=== PATIENT | female | born 1990 | race Caucasian/White ===

== ENCOUNTER 2019-10-27 16:02 | Emergency (ER) | payer SELFPAY ==
--- NOTE | 2019-10-27 17:57 | RAD REPORT ---
EXAM DESCRIPTION: RAD - Forearm Right - 10/27/2019 5:49 pm CLINICAL HISTORY: Right arm pain status post fall FINDINGS: Comminuted moderately displaced fracture involves the distal radius with impaction of frac ture fragments. Avulsion fracture of the ulnar styloid.
[2019-10-27] MEDS ORDERED: HYDROCODONE/APAP 5/325 MG TAB ONE (18:00)
--- NOTE | 2019-10-27 18:03 | ER ---
Nurse's Notes [facility] Name: Leisa Nunez Age: 28 yrs Sex: Female : 1990 Arrival Date: 10/27/2019 Time: 16:03 Bed 14 Private MD: Diagnosis: Fall with nondisplaced mildly comminuted distal radius fracture with ulnar styloid fracture Presentation: 10/27 16:18 Presenting complaint: Patient states: R wrist pain x 1 week after falling down steps. ss Transition of care: patient was not received from another setting of care. Onset of symptoms was October 20, 2019. Risk Assessment: Do you want to hurt yourself or someone else? Patient reports no desire to harm self or others. Initial Sepsis Screen: Does the patient meet any 2 criteria? No. Patient's initial sepsis screen is negative. Does the patient have a suspected source of infection? No. Patient's initial sepsis screen is negative. Care prior to arrival: None. 16:18 Method Of Arrival: Ambulatory ss 16:18 Acuity: FRANCISCO 4 ss Triage Assessment: 18:30 General: Appears in no apparent distress. comfortable. Injury Description: fracture. 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 - Coronavirus screen:: The patient has NOT traveled to [place], [place], or [place] in the past 14 days. Proceed with normal triage process as indicated. - Social history:: Smoking status: Patient reports the use of cigarette tobacco products, smokes one pack cigarettes per day. - Ebola Screening: : Patient denies exposure to infectious person Patient denies travel to an Ebola-affected area in the 21 days before illness onset. Screenin:30 Abuse screen: Denies threats or abuse. Denies injuries from another. Nutritional mg2 screening: No deficits noted. Tuberculosis screening: No symptoms or risk factors identified. Fall Risk Fall in past 12 months (25 points). Assessment: 17:30 General: Appears in no apparent distress. comfortable, Behavior is calm, cooperative. mg2 Pain: Complains of pain in right wrist. Neuro: Level of Consciousness is awake, alert, obeys commands, Oriented to person, place, time, situation. Cardiovascular: Capillary refill < 3 seconds Patient's skin is warm and dry. Respiratory: Airway is patent Respiratory effort is even, unlabored, Respiratory pattern is regular, symmetrical. GI: No signs and/or symptoms were reported involving the gastrointestinal system. : No signs and/or symptoms were reported regarding the genitourinary system. EENT: No signs and/or symptoms were reported regarding the EENT system. Derm: Skin is intact, is healthy with good turgor, Skin is pink, warm \T\ dry. normal. Musculoskeletal: Circulation, motion, and sensation intact. Capillary refill < 3 seconds, Swelling present in right arm. 18:45 Reassessment: No changes from previously documented assessment. mg2 Vital Signs: 16:18 BP 130 / 77; Pulse 67; Resp 15; Temp 98.2(TE); Pulse Ox 99% on R/A; Height 5 ft. 1 in. ss (154.94 cm); Pain 5/10; 18:30 BP 128 / 78; Pulse 70; Resp 18; Temp 98; Pulse Ox 100% on R/A; mg2 ED Course: 16:03 Patient arrived in ED. as 16:08 Karyn Mcqueen FNP-C [facility]. snw 16:08 Ayden Tijerina MD is Attending Physician. snw 16:16 Odessa Babcock, ТАТЬЯНА is Primary Nurse. aj1 16:18 Arm band placed on right wrist. ss 16:19 Triage completed. ss 17:30 Patient has correct armband on for positive identification. Pulse ox on. NIBP on. Door mg2 closed. 17:30 No provider procedures requiring assistance completed. Patient did not have IV access mg2 during this emergency room visit. 17:50 Forearm Right In Process Unspecified. EDMS 18:26 Orthoglass splint: Sugar tong splint applied on right arm. Sling applied to. mh5 Administered Medications: 17:59 Not Given (pt declined): [place] 5 mg-325 mg 1 tabs PO once; RASS on ADMIN: Combtv4, Very snw Agttd3, Agttd2, Rstlss1, AlertClm0, Drwsy-1, Lt Sdtn-2, Mod Sdtn-3, Dp Sdtn-4, UnArsble-5 18:02 Drug: Motrin 400 mg Route: PO; mg2 18:27 Follow up: Response: No adverse reaction mg2 Outcome: 18:02 Discharge ordered by . leonila 18:45 Discharged to home ambulatory, with family. mg2 18:45 Condition: good 18:45 Discharge instructions given to patient, family, Instructed on discharge instructions, follow up and referral plans. medication usage, Demonstrated understanding of instructions, follow-up care, medications, Prescriptions given X 1. 18:47 Patient left the ED. mg2 Signatures: Dispatcher [employer] EDOdessa Jackson, RN RN aj1 Karyn Mcqueen, COATING MIXER TENDER-C COATING MIXER TENDER-Csnw La Shipley Shelby, ТАТЬЯНА RN Arabella Shipley [facility] Dale Herndon RN RN mg2
--- NOTE | 2019-10-27 18:03 | EDPHYS ---
Physician Documentation [facility] Name: Leisa Nunez Age: 28 yrs Sex: Female : 1990 Arrival Date: 10/27/2019 Time: 16:03 Bed 14 Private MD: ED Physician Ayden Tijerina HPI: 10/27 17:44 This 28 yrs old Female presents to ER via Ambulatory with complaints of fall, snw right forearm pain. 17:44 The complaints affect the dorsal aspect of right forearm, right wrist and right snw forearm. Context: The problem was sustained at home, resulted from a fall, from a standing position, off of steps . Onset: The symptoms/episode began/occurred suddenly, 1 week(s) ago, and became persistent. Treatment prior to arrival includes: no previous treatment. Associated signs and symptoms: Pertinent positives: pain, swelling, of the right forearm. Severity of symptoms: At their worst the symptoms were moderate. The patient has not experienced similar symptoms in the past. The patient has not recently seen a physician. no other injury, no LOC. 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 - Coronavirus screen:: The patient has NOT traveled to [place], [place], or [place] in the past 14 days. Proceed with normal triage process as indicated. - Social history:: Smoking status: Patient reports the use of cigarette tobacco products, smokes one pack cigarettes per day. - Ebola Screening: : Patient denies exposure to infectious person Patient denies travel to an Ebola-affected area in the 21 days before illness onset. ROS: 17:43 Constitutional: Negative for fever, chills, and weight loss, Eyes: Negative for injury, snw pain, redness, and discharge, ENT: Negative for injury, pain, and discharge, Neck: Negative for injury, pain, and swelling, Cardiovascular: Negative for chest pain, palpitations, and edema, Respiratory: Negative for shortness of breath, cough, wheezing, and pleuritic chest pain, Abdomen/GI: Negative for abdominal pain, nausea, vomiting, diarrhea, and constipation, Back: Negative for injury and pain, : Negative for injury, bleeding, discharge, and swelling, Skin: Negative for injury, rash, and discoloration, Neuro: Negative for headache, weakness, numbness, tingling, and seizure. 17:43 MS/extremity: Positive for injury or acute deformity, contusion, ecchymosis, pain, swelling, of the right forearm. Exam: 17:41 Constitutional: This is a well developed, well nourished patient who is awake, alert, snw and in no acute distress. Head/Face: Normocephalic, atraumatic. Eyes: Pupils equal round and reactive to light, extra-ocular motions intact. Lids and lashes normal. Conjunctiva and sclera are non-icteric and not injected. Cornea within normal limits. Periorbital areas with no swelling, redness, or edema. ENT: Nares patent. No nasal discharge, no septal abnormalities noted. Tympanic membranes are normal and external auditory canals are clear. Oropharynx with no redness, swelling, or masses, exudates, or evidence of obstruction, uvula midline. Mucous membranes moist. Neck: Trachea midline, no thyromegaly or masses palpated, and no cervical lymphadenopathy. Supple, full range of motion without nuchal rigidity, or vertebral point tenderness. No Meningismus. Chest/axilla: Normal chest wall appearance and motion. Nontender with no deformity. No lesions are appreciated. Cardiovascular: Regular rate and rhythm with a normal S1 and S2. No gallops, murmurs, or rubs. Normal PMI, no JVD. No pulse deficits. Respiratory: Lungs have equal breath sounds bilaterally, clear to auscultation and percussion. No rales, rhonchi or wheezes noted. No increased work of breathing, no retractions or nasal flaring. Abdomen/GI: Soft, non-tender, with normal bowel sounds. No distension or tympany. No guarding or rebound. No evidence of tenderness throughout. Back: No spinal tenderness. No costovertebral tenderness. Full range of motion. Skin: Warm, dry with normal turgor. Normal color with no rashes, no lesions, and no evidence of cellulitis. Neuro: Awake and alert, GCS 15, oriented to person, place, time, and situation. Cranial nerves II-XII grossly intact. Motor strength 5/5 in all extremities. Sensory grossly intact. Cerebellar exam normal. Normal gait. Psych: Awake, alert, with orientation to person, place and time. Behavior, mood, and affect are within normal limits. 17:41 Musculoskeletal/extremity: Extremities: grossly normal except: noted in the right forearm, distal radius thickened, mild ecchymosis, pulses normal: Circulation is intact in all extremities. Sensation intact. Vital Signs: 16:18 BP 130 / 77; Pulse 67; Resp 15; Temp 98.2(TE); Pulse Ox 99% on R/A; Height 5 ft. 1 in. ss (154.94 cm); Pain 5/10; 18:30 BP 128 / 78; Pulse 70; Resp 18; Temp 98; Pulse Ox 100% on R/A; mg2 MDM: 17:36 Patient medically screened. snw 18:04 Data reviewed: vital signs, nurses notes. Data interpreted: Pulse oximetry: on room air snw is 99 %. Interpretation: normal. Counseling: I had a detailed discussion with the patient and/or guardian regarding: the historical points, exam findings, and any diagnostic results supporting the discharge/admit diagnosis, radiology results, the need for outpatient follow up, to return to the emergency department if symptoms worsen or persist or if there are any questions or concerns that arise at home. Special discussion: Based on the history and exam findings, there is no indication for further emergent testing or inpatient evaluation. I discussed with the patient/guardian the need to see the orthopedic surgeon for further evaluation of the symptoms. 10/27 17:45 Order name: Forearm Right; Complete Time: 18:00 EDMS 10/27 18:00 Order name: Sugar Tong Forearm Splint; Complete Time: 18:27 snw 10/27 18:00 Order name: Sling; Complete Time: 18:27 snw Administered Medications: 17:59 Not Given (pt declined): [place] 5 mg-325 mg 1 tabs PO once; RASS on ADMIN: Combtv4, Very snw Agttd3, Agttd2, Rstlss1, AlertClm0, Drwsy-1, Lt Sdtn-2, Mod Sdtn-3, Dp Sdtn-4, UnArsble-5 18:02 Drug: Motrin 400 mg Route: PO; mg2 18:27 Follow up: Response: No adverse reaction mg2 Disposition: 21:12 Co-signature as Attending Physician, Ayden Tijerina MD I agree with the assessment and kdr plan of care. Disposition: 10/27/19 18:02 Discharged to Home. Impression: Fall with nondisplaced mildly comminuted distal radius fracture with ulnar styloid fracture. - Condition is Stable. - Discharge Instructions: Cast or Splint Care, Adult, Forearm Fracture, Fall Prevention in the Home, RICE for Routine Care of Injuries, How to Use a Sling. - Prescriptions for Motrin IB 200 mg Oral Tablet - take 2 tablet by ORAL route every 8 hours As needed as needed with food; 40 tablet. - Medication Reconciliation Form, Thank You Letter, Antibiotic Education, Prescription Opioid Use form. - Follow up: Emergency Department; When: As needed; Reason: Worsening of condition. Follow up: Private Physician; When: 2 - 3 days; Reason: Recheck today's complaints, Continuance of care, Re-evaluation by your physician. Signatures: Dispatcher [employer] [facility] Ayden Tijerina MD MD [facility] Karyn Mcqueen, BENCH ASSEMBLY INSPECTOR-C BENCH ASSEMBLY INSPECTOR-Yuryw Leydi Orona RN RN ss Dale Herndon RN RN mg2 Corrections: (The following items were deleted from the chart) 17:45 17:30 Wrist Right 3 View+[email or web address] ordered. [facility] 18:47 18:02 10/27/2019 18:02 Discharged to Home. Impression: Fall with nondisplaced mildly mg2 comminuted distal radius fracture with ulnar styloid fracture. Condition is Stable. Forms are Medication Reconciliation Form, Thank You Letter, Antibiotic Education, Prescription Opioid Use. Follow up: Emergency Department; When: As needed; Reason: Worsening of condition. Follow up: Private Physician; When: 2 - 3 days; Reason: Recheck today's complaints, Continuance of care, Re-evaluation by your physician. snw
[2019-10-27] MEDS ORDERED: IBUPROFEN 400 MG TAB ONE (18:04)
[2019-10-27 18:52] VITALS: BP 128/78; TEMP 98; O2SAT 100
== END 2019-10-27 18:47 | disposition home or self-care (01) ==
LOC: ER 16:02
PROC: 2W3CX1Z Immobilization of Right Lower Arm using Splint (ICD-10-PCS; principal; 2019-10-27)
DX: S52.614A Nondisplaced fracture of right ulna styloid process, initial encounter for closed fracture (principal); S52.501A Unspecified fracture of the lower end of right radius, initial encounter for closed fracture; W10.9XXA Fall (on) (from) unspecified stairs and steps, initial encounter; Y93.9 Activity, unspecified; Y92.9 Unspecified place or not applicable
CPT/HCPCS: 99284